=== PATIENT | male | born 1965 | race African-American/Black ===

== ENCOUNTER 2016-08-15 11:01 | Day surgery (SDC) | payer OTHER, BC ==
[~2016-08-15] VITALS: Ht 174 cm; Wt 84.0 kg
[~2016-08-15 11:01] MED LIST: ADALAT CC 30 MG30 MG PO; ASPIR-LOW81 MG PO; COZAAR50 MG PO; ISOSORBIDE DINI10 MG PO; ISOSORBIDE MONO30 MG PO; LIPITOR40 MG PO; LOPRESSOR100 M1 PO; METOPROLOL TART50 MG PO; MULTIVITAMIN1 EAC2 PO; NEPHRO-VITE,1 TABLET PO; PROCARDIA XL60 MG PO; PROTONIX40 MG PO; RENVELA800 MG PO; SENSIPAR30 MG PO; SUPER B COMP1 TABLET PO; TYLENOL EXTRA500 MG PO
[2016-08-15 13:36] LABS: METH RESISTANT S AUREUS PCR NEGATIVE (NEGATIVE)
[2016-08-15 13:41] LABS: PROBE CHECK PASS; SPECIMEN PROCESSING CONTROL PASS
== END 2016-08-15 14:00 | disposition home or self-care (01) ==
LOC: CATH 11:01
PROVIDERS: Surgery
DX: T82.858A Stenosis of other vascular prosthetic devices, implants and grafts, initial encounter (principal); Y83.2 Surgical operation with anastomosis, bypass or graft as the cause of abnormal reaction of the patient, or of later complication, without mention of misadventure at the time of the procedure; I12.0 Hypertensive chronic kidney disease with stage 5 chronic kidney disease or end stage renal disease; N18.6 End stage renal disease; Z99.2 Dependence on renal dialysis; Z86.73 Personal history of transient ischemic attack (TIA), and cerebral infarction without residual deficits; Z79.82 Long term (current) use of aspirin
CPT/HCPCS: 87641; C1725; C1769; C1894; J1644; J2250; J3010

== ENCOUNTER 2017-01-21 13:14 | Emergency (ER) | payer OTHER, BC ==
[~2017-01-21] VITALS: Ht 175.3 cm; Wt 88.0 kg
[2017-01-21 16:06] LABS: HEMATOCRIT 31.4 % (38.0-50.0); MCH 27.1 PG (29.0-34.0); MCHC 33.1 G/DL (30.0-36.0); MCV 81.8 FL (86-99); MEAN PLAT.VOLUME 9.4 uM^3 (9.0-12.4); PLATELET COUNT 218 K/uL (156-360); RBC DIS.WIDTH-CV 14.6 % (11.8-14.6); RBC DIS.WIDTH-SD 43.1 % (39-53); RED BLOOD COUNT 3.84 M/uL (4.00-5.50); WHITE BLOOD COUNT 5.6 K/uL (4.1-10.2)
[2017-01-21 16:15] LABS: CHLORIDE 99 mEq/L (99-109); MAGNESIUM 2.1 mg/dL (1.3-2.7); POTASSIUM 3.3 mEq/L (3.7-5.4); SODIUM 139 mEq/L (136-147)
[2017-01-21 16:17] LABS: GLUCOSE 84 mg/dL (70-99)
[2017-01-21 16:18] LABS: ANION GAP 11 MEQ/L (2-14)
[2017-01-21 16:19] LABS: TOTAL BILIRUBIN 0.6 mg/dL (0.0-1.0)
[2017-01-21 16:20] LABS: SERUM ETHYL ALCOHOL < 10 mg/dL
[2017-01-21 16:21] LABS: ALKALINE PHOSPHATASE 72 IU/L (3-129); GFR ESTIMATE (CALCULATED) 18 mL/min/
[2017-01-21 16:22] LABS: UREA NITROGEN (BUN) 17 mg/dL (9-23)
[2017-01-21 16:50] LABS: POINT-OF-CARE METER ID UU14100415
[2017-01-21 17:44] LABS: ADD MIUA? YES; BILIRUBIN NEGATIVE; BLOOD SMALL; COLOR STRAW ((YELLOW)); GLUCOSE (STRIP) NEGATIVE; KETONES NEGATIVE; LEUKOCYTES NEGATIVE; NITRITE NEGATIVE; PROTEIN (STRIP) NEGATIVE; SPECIFIC GRAVITY 1.005 (1.000-1.030); UROBILINOGEN 0.2 MG/DL (0.2-1.0)
[2017-01-21 17:50] LABS: BACTERIA NONE SEEN /HPF; EPITHELIAL CELLS RARE /HPF; MUCUS NONE SEEN /LPF; RED BLOOD CELLS 0-5 /HPF (0-5); UCUL ADDED? NO; WHITE BLOOD CELLS 0-5 /HPF (0-5)
[2017-01-21 17:52] LABS: AMPHETAMINE NEGATIVE (500 ng/mL); BARBITURATES NEGATIVE (200 ng/mL); BENZODIAZEPINES NEGATIVE (150 ng/mL); COCAINE NEGATIVE (150 ng/mL); INTERNAL CONTROLS VALID? YES; METHADONE NEGATIVE (200 ng/mL); METHAMPHETAMINE NEGATIVE (500 ng/mL); OPIATES (MORPHINE) NEGATIVE (100 ng/mL); OXYCODONE NEGATIVE (100 ng/mL); PHENCYCLIDINE NEGATIVE (25 ng/mL); PROPOXYPHENE NEGATIVE (300 ng/mL); THC CANNABINOIDS NEGATIVE (50 ng/mL); TRICYCLIC ANTIDEPRESSANTS NEGATIVE (300 ng/mL)
[2017-01-21 20:39] VITALS: BP 165/95
== END 2017-01-21 20:40 | disposition home or self-care (01) ==
LOC: EME 13:14
PROVIDERS: Emergency Medicine
DX: R41.0 Disorientation, unspecified (principal); R44.0 Auditory hallucinations; R41.82 Altered mental status, unspecified; I12.0 Hypertensive chronic kidney disease with stage 5 chronic kidney disease or end stage renal disease; N18.6 End stage renal disease; Z99.2 Dependence on renal dialysis; Z79.82 Long term (current) use of aspirin
CPT/HCPCS: 70450; 80053; 81003; 82948; 83735; 85027; 90839; 93005; 99281; 99285; G0480

== ENCOUNTER 2017-05-20 12:31 | Emergency (ER) | payer OTHER, BC ==
[~2017-05-20] VITALS: Ht 175.3 cm; Wt 86.2 kg
[2017-05-20] MEDS ORDERED: PERCOCET 5/31 TABLET PO (16:13)
[2017-05-20 16:53] VITALS: BP 144/88
== END 2017-05-20 16:55 | disposition home or self-care (01) ==
LOC: EME 12:31
PROC: 2W3DX1Z Immobilization of Left Lower Arm using Splint (ICD-10-PCS; principal; 2017-05-20)
DX: S52.502A Unspecified fracture of the lower end of left radius, initial encounter for closed fracture (principal); W10.9XXA Fall (on) (from) unspecified stairs and steps, initial encounter; K21.9 Gastro-esophageal reflux disease without esophagitis; E78.5 Hyperlipidemia, unspecified; I12.0 Hypertensive chronic kidney disease with stage 5 chronic kidney disease or end stage renal disease; N18.6 End stage renal disease; Z99.2 Dependence on renal dialysis
CPT/HCPCS: 73110; 99281; 99284